=== PATIENT | male | born 1980 | race Caucasian/White ===

== ENCOUNTER → 2019-01-15 | Outpatient (CLI) | payer OTHER ==
[~2019-01-15] MED LIST: GABA600T7 PO; OMEG-57 PO; VALS40TA2 PO
--- NOTE | 2019-01-15 12:05 | PAIN ---
DATE OF SERVICE: 01/15/2019 INITIAL CONSULTATION FOR PAIN CLINIC CHIEF COMPLAINT: Low back and right greater than left lower extremity pain. HISTORY OF PRESENT ILLNESS: This is a 38-year-old male who presents with history of pain, low back, right greater than left lower extremity, since the injury on 11/05/2018. The patient had a L1 burst fracture and underwent surgery for this on 11/07/2018, with significant pain since that time. The patient has had some physical therapy, also some trigger point dry needling, which is not really helping the pain significantly. The patient reports he feels the physical therapy helped a little, but not very much. He is having a very significant difficulty sleeping and wakes him from sleep at least 3-4 times a night, does not affect his bowel or bladder control or his ability to walk, but he is not using any assistive devices to ambulate. The patient does have some postoperative x-rays done at [facility], results of which show lower thoracic lumbar fusion with L1 burst fracture with completion of posterior instrumentation at T11-L3, bridging the moderate compression fracture of L1, mild strain, lumbar lordosis, mild compression of the anterior superior margin of L2, L3 and L4, demonstrated left hip arthroplasty, partially visualized as well. The patient reports pain is becoming more constant, changes during the day with activity, better with sitting or lying down, but again waking him from sleep significantly. The patient rates his disability rate from 0-10, 10 being the worst, is a 4 with family home responsibilities and occupation, 7 with recreation, 2 with social activity, 1 with sexual behavior and self-care, 5-6 with life support activities, especially sleeping. The patient is taking gabapentin, which he does not feel is helping significantly, has not tried any other medications that have helped with the pain. The patient reports numbness in the left lateral thigh and anterior thigh as well as the posterior calf on the left side, worse with walking and standing. The patient reports no overt motor loss, but significant fatigability of the left leg greater than right. PAST MEDICAL HISTORY: Significant for hypertension, cigarette smoking, quit 10 years ago. Hepatitis C, arthritis, avascular necrosis of the left hip, migraine headaches. PREVIOUS SURGERY: Includes a left hip replacement in 07/2018, L1 burst fracture with fusion from T11 through L3 on 11/07/2018. Previous hiatal hernia repair, appendectomy and right knee scope. Also, ACL repair on the right knee. FAMILY HISTORY: Significant for cancers and diabetes. SOCIAL HISTORY: The patient drinks about 1-2 alcoholic drinks a week, has been smoking for about 10 years, about half pack a day. He is , does not use any illegal, illicit or recreational drugs. He has 2 children living at home, lives locally in [place], [place]. 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 REVIEW OF SYSTEMS: The patient's review of systems is positive for those items mentioned in history of present illness. All systems reviewed and otherwise negative. It is complete, full and well documented on the patient's chart. PHYSICAL EXAMINATION: VITAL SIGNS: The patient's blood pressure 137/78, pulse 65, respirations 18, temperature 98.2 degrees Fahrenheit, height is 69 inches, weight is 193 pounds. GENERAL: The patient is awake, alert, oriented, appropriate, very pleasant demeanor. HEENT: Shows normocephalic, atraumatic. Extraocular movements are intact and symmetrical. Oral cavity: Mucous membranes are moist and pink. Dentition is intact. NECK: Shows anterior throat supple without palpable lymphadenopathy noted. Swallow reflex symmetrical. CHEST: Shows normal with inspection. Breath sounds clear to auscultation bilaterally. HEART: Shows S1, S2 clear. No murmurs auscultated. ABDOMEN: Soft, nontender, nondistended. No palpable organomegaly is noted. No rebound or guarding demonstrated. BACK: Shows spine grossly in the midline. Normal-appearing thoracic kyphosis and flattening of lumbar lordotic curvature with well-healed surgical scarring in various multiple spots from the previous fusion in the low thoracic and lumbar distribution, which are well healed. Paraspinous muscle shows symmetrical, but with palpation, more tender on the left side than the right in the low thoracic and upper to mid lumbar distribution, with some mild hypertrophy on the left compared to the right. No specific radiation. No specific trigger points, but very firm musculature on the left compared to the right with palpation. The patient has good rotational motion of lumbar spine, both laterally greater than 10 degrees right and left as well as extension greater than 10 degrees, forward flexion 45 degrees without significant increase in pain. The patient's lower extremities show deep tendon reflexes 2+ in the patellar, 1+ tendo-calcaneus tendons. Motor exam is approximately 4 on a scale of 5 on the left, 5/5 on the right. Peripheral pulses are 1+ posterior tibia. No peripheral edema is noted. Lower extremities are warm and dry to touch, equal in color and appearance. Straight leg raise noted to be positive on the left at about 45 degrees, decreased with knee flexion, right side is negative. Gaenslen and Marcelino maneuvers are grossly negative with some limited external rotation on the left secondary to previous hip replacement. The patient is able to stand, stand on her toes without significant difficulty or loss of balance, walks with a normal-appearing gait for short distance in the office today, does not appear to favor the right or left lower extremity significantly with a short walking distance, not using any assistive devices to ambulate such as canes or walkers. SKIN: Shows warm and dry, good turgor. No edema. No sores, rashes or bruising. IMPRESSION: 1. This is a 38-year-old male with a recent history of injury with L1 burst fracture status post lumbar and thoracic fusion T11 to L3, with residual low back pain and radicular pain in the right lower extremity. 2. X-rays of lumbar spine as noted. 3. Hypertension. 4. Hypothyroidism. 5. Cigarette smoking. 6. Hepatitis C. PLAN: Options were discussed with the patient including conservative medical management, continued physical therapy, interventional technique. He would like to pursue interventional techniques. We discussed a lumbar epidural steroid injection using description as well as anatomical models to describe the procedure. The patient would like to pursue this, will wait for preauthorization with his insurance provider. In the meantime, the patient will maintain his activity as tolerated, keep stretching and strengthening exercises and therapy exercises since his surgery. The patient will followup approximately in 2 weeks. We will plan on lumbar epidural steroid injection at that time at the L4-L5 level. SINAI IRENE MD DR: SHIMON/allyson JOB#: [id number] / [id number]
== END | disposition home or self-care (01) ==
LOC: PNCL 07:50
PROVIDERS: ATTEND Anesthesiology
DX: M54.5 Low back pain (principal); M79.604 Pain in right leg; M79.605 Pain in left leg; I10 Essential (primary) hypertension; M19.90 Unspecified osteoarthritis, unspecified site; E03.9 Hypothyroidism, unspecified; B19.20 Unspecified viral hepatitis C without hepatic coma; F17.210 Nicotine dependence, cigarettes, uncomplicated; Z98.1 Arthrodesis status; Z87.81 Personal history of (healed) traumatic fracture; Z96.642 Presence of left artificial hip joint
CPT/HCPCS: G0463

== ENCOUNTER → 2019-03-04 | Outpatient (CLI) | payer OTHER ==
[~2019-03-04] MED LIST changes: +DIAZ5TAB4 PO; +HYDR-2761 PO; +IOHEXOL 180 MG/ML 10 ML VIAL. ONE; +methylPREDNISolone ACETATE 40 MG/ML VIAL. ONE; +methylPREDNISolone ACETATE 80 MG/ML VIAL. ONE
--- NOTE | 2019-03-04 09:58 | PAIN ---
DATE OF SERVICE: 03/04/2019 PROGRESS NOTE FOR PAIN CLINIC DIAGNOSES: Lumbar radiculopathy with lumbar degenerative disk disease and post-lumbar laminectomy syndrome. HISTORY OF PRESENT ILLNESS: The patient is a 38-year-old male who returns for followup status post lumbar epidural steroid injection x 1. The patient reports only minimal decrease in pain after the first injection, still pain across the low back into the left lower extremity occasionally, mostly just in the low back itself, worse with walking, standing, changing positions, bending or stooping. The patient reports it is sharp and constant pain at times, rates it as an 8 on a scale of 10 at its worst over the past week, 3-4 on average, 3 at its least and is a 4 today. The patient reports no new motor or sensory deficits, no new bowel or bladder incontinence, but awakening him from sleep about every 3-4 hours a night as well. PHYSICAL EXAMINATION: VITAL SIGNS: His blood pressure 125/85, pulse 52, respirations 16, temperature 98.0 degrees Fahrenheit, weight is 192 pounds. GENERAL: The patient is awake, alert, oriented, appropriate, very pleasant demeanor. HEENT: Head shows normocephalic, atraumatic. Extraocular movements are intact and symmetrical. Oral cavity, mucous membranes are moist and pink. Dentition is intact. NECK: Shows anterior throat supple without palpable lymphadenopathy noted. Swallow reflex symmetrical. CHEST: Shows normal on inspection. Breath sounds clear to auscultation bilaterally. HEART: Shows S1, S2 clear. No murmurs auscultated. ABDOMEN: Soft, nontender, nondistended. No palpable organomegaly is noted. No rebound or guarding demonstrated. BACK: Shows spine grossly in the midline. Normal-appearing thoracic kyphosis and some flattening of lumbar lordotic curvature. Well-healed surgical scarring which is fairly extensive in the lower thoracic and upper lumbar distribution. Lumbar paraspinous muscle shows symmetrical on inspection, on palpation shows some moderate tenderness diffusely bilaterally, but only diffusely without radiation. EXTREMITIES: The patient's lower extremities show deep tendon reflexes 2+ in the patellar, 1+ tendo-calcaneus tendons. Motor exam is approximately 4 on a scale of 5 on the left, 5/5 on the right with dorsiflexion and extension. Peripheral pulses are 1+ posterior tibia. No peripheral edema is noted bilaterally. Options were discussed with the patient. The patient's old chart was reviewed as his current medication regimen updated. Current review of systems updated today as well and we will proceed with the second in the series of lumbar epidural steroid injection today with fluoroscopic guidance. Risks were again discussed including, but not limited to bleeding, infection, possibility of epidural hematoma, subsequent neurological compromise, dural puncture, headaches, spinal cord and/or nerve damage, side effects of steroid medication and poor results regarding pain control. The patient understands and wished to proceed. The patient will return to clinic in approximately 2 weeks for followup. He was counseled on return appointment, activity level and side effects to be aware of. DIAGNOSES: Lumbar radiculopathy with lumbar degenerative disk disease and lumbar post-laminectomy syndrome. PROCEDURE: Lumbar epidural steroid injection, translaminar approach at L4-L5 level using C-arm fluoroscopic guidance under sterile prep and drape using local anesthetic. MEDICATION INJECTED: A total of 120 mg Depo-Medrol plus 10 mL of preservative-free normal saline and 2 mL of contrast. CONDITION AT DISCHARGE: Stable. The patient tolerated the procedure well, had no complications. SINAI IRENE MD DR: SHIMON/allyson JOB#: [id number] / [id number]
== END ==
LOC: PNCL 07:40
PROVIDERS: ATTEND Anesthesiology
DX: M51.16 Intervertebral disc disorders with radiculopathy, lumbar region (principal); M96.1 Postlaminectomy syndrome, not elsewhere classified
CPT/HCPCS: 62323; J1030; J1040; Q9965

== ENCOUNTER → 2019-03-20 | Outpatient (CLI) | payer OTHER ==
[~2019-03-20] MED LIST changes: -IOHEXOL 180 MG/ML 10 ML VIAL. ONE; -methylPREDNISolone ACETATE 40 MG/ML VIAL. ONE; -methylPREDNISolone ACETATE 80 MG/ML VIAL. ONE
--- NOTE | 2019-03-20 08:37 | PAIN ---
DATE OF SERVICE: 03/20/2019 PROGRESS NOTE FOR PAIN CLINIC DIAGNOSES: Lumbar radiculopathy, lumbar degenerative disk disease, and lumbar post-laminectomy syndrome. HISTORY OF PRESENT ILLNESS: The patient is a 38-year-old male who returns for followup status post lumbar epidural steroid injections x 2. The patient reports only about 20% improvement overall after the injection. The patient reports he feels fairly well until he is at work. He has been walking around 17,000 steps a day with his job. The patient reports it aggravates the pain significantly. When he is at rest, it is much better but at the time he gets down with his working day, he is unable to stand secondary to the pain. The patient reports his pain is 7 on a scale of 10 at its worst in the past week, 3-4 at its least and is a 3 on average, and is 3 today. The patient reports it is sharp and constant and aching in the low back itself, some radiation into the lower extremities as well with extended walking. The patient reports no new motor or sensory deficits. It is waiting him from sleep at night about 3-4 times. The patient has been taking Vicodin and Valium and is taking Vicodin each day when he gets home from work to tolerate the pain. The patient reports no new motor or sensory deficits, no other changes. PHYSICAL EXAMINATION: VITAL SIGNS: The patient's blood pressure 135/95, pulse 70, respirations 18, temperature 98.2 degrees Fahrenheit, height is 69 inches, weight is 189 pounds. GENERAL: The patient is awake, alert, oriented, appropriate, very pleasant demeanor. HEENT: Shows normocephalic, atraumatic. Extraocular movements are intact and symmetrical. Oral cavity: Mucous membranes moist and pink. Dentition is intact. NECK: Shows anterior throat supple without palpable lymphadenopathy noted. Swallow reflex symmetrical. CHEST: Shows normal on inspection. Breath sounds are clear to auscultation bilaterally. HEART: Shows S1, S2 clear. No murmurs auscultated. ABDOMEN: Soft, nontender, nondistended. No palpable organomegaly is noted. No rebound or guarding demonstrated. BACK: Shows spine grossly in the midline. Normal appearing thoracic kyphosis and lumbar lordotic curvature with well-healed surgical scar in the upper lumbar and lower thoracic distribution. EXTREMITIES: The patient's lower extremities show deep tendon reflexes 2+ in the patellar, 1+ in the tendo-calcaneus tendons. Motor exam is approximately 4 on a scale of 5 on the left, 5/5 on the right with dorsiflexion, extension, quadriceps and hamstring flexion. Peripheral pulses are 1+ in the posterior tibia. No peripheral edema is noted. Options were discussed with the patient. The patient's old chart was reviewed and his current medication regimen updated. Current review of systems updated today as well and we will preauthorize the patient for a third lumbar epidural steroid injection. The patient would like to proceed with a third injection in hopes of getting some improvement overall. The patient will continue to do strengthening and stretching exercises and walking as tolerated. The patient was cautioned as to heavy lifting, bending, flexing and repetitive motions as well as crawling or pushing or pulling objects which should be avoided as well as lifting more than about 10-20 pounds. The patient understands and agrees. The patient will return to clinic in approximately 1 week. We will plan on third lumbar epidural steroid injection at that time. SINAI IRENE MD DR: SHIMON/allyson JOB#: [id number] / [id number]
== END | disposition home or self-care (01) ==
LOC: PNCL 07:47
PROVIDERS: ATTEND Anesthesiology
DX: M51.16 Intervertebral disc disorders with radiculopathy, lumbar region (principal); M96.1 Postlaminectomy syndrome, not elsewhere classified
CPT/HCPCS: G0463

== ENCOUNTER → 2019-03-28 | Outpatient (CLI) | payer OTHER ==
[~2019-03-28] MED LIST changes: +IOHEXOL 180 MG/ML 10 ML VIAL. ONE; +methylPREDNISolone ACETATE 40 MG/ML VIAL. ONE; +methylPREDNISolone ACETATE 80 MG/ML VIAL. ONE
--- NOTE | 2019-03-29 05:18 | PAIN ---
DATE OF SERVICE: 03/28/2019 PROGRESS NOTE FOR PAIN CLINIC DIAGNOSES: Lumbar radiculopathy with lumbar degenerative disk disease and post lumbar laminectomy syndrome. HISTORY OF PRESENT ILLNESS: The patient is a 38-year-old male who returns for followup status post lumbar epidural steroid injections x 2. The patient reports only about 20% improvement overall, still with significant pain when he is on his feet, in the low back itself and into the left lower extremity more than the right with some numbness in the left thigh as well. The patient reports it is sharp, constant, aching, rated 8 on a scale of 10, at its worst over the past week, 4 on average, 4 at its least and is a 4 today. The patient reports it is waking him from sleep about every 6-7 hours, difficulty mainly with standing, walking, being on his feet especially with his work duties and active duties. The patient feels better initially after the injections, but then with continued working duties the pain returns fairly quickly. PHYSICAL EXAMINATION: VITAL SIGNS: The patient's blood pressure is 129/83, pulse 63, respirations 16, temperature is 98.2 degrees Fahrenheit and weight is 185 pounds. GENERAL: The patient is awake, alert, oriented, appropriate, very pleasant demeanor. HEENT: Shows normocephalic, atraumatic. Extraocular movements are intact and symmetrical. Oral cavity: Mucous membranes moist and pink. Dentition is intact. NECK: Shows anterior throat is supple without palpable lymphadenopathy noted. Swallow reflex symmetrical. CHEST: Shows normal on inspection. Breath sounds clear to auscultation bilaterally. HEART: Shows S1, S2 clear. No murmurs auscultated. ABDOMEN: Soft, nontender, nondistended. BACK: Shows spine grossly in the midline. Flattening of lumbar lordotic curvature is noted with well-healed surgical scarring and demonstrated the paraspinous muscles were diffusely tender throughout the upper, middle and lower distribution of paraspinous muscles bilaterally. EXTREMITIES: The patient's lower extremities show deep tendon reflexes 2+ in the patellar, 1+ tendo-calcaneus tendons. Motor exam is approximately 4 on a scale of 5 on the left and 5/5 on the right with dorsiflexion, extension, quadriceps and hamstring flexion. Peripheral pulses are 1+ posterior tibia. No peripheral edema is noted bilaterally. Options were discussed with the patient. The patient's old chart was reviewed as his current medication regimen updated. Current review of systems updated today as well. We will proceed with a third in the series of lumbar epidural steroid injection today with fluoroscopic guidance. Risks were again discussed including, but not limited to bleeding, infection, possibility of epidural hematoma, subsequent neurologic compromise, dural puncture, headaches, spinal cord and/or nerve damage, side effects of steroid medication and poor results regarding pain control. The patient understands and wished to proceed. The patient will return to the clinic in approximately 2 weeks for followup or as necessary. The patient was counseled as to the activity level as well as the side effects to be aware of. DIAGNOSES: Lumbar radiculopathy with lumbar degenerative disk disease and lumbar post laminectomy syndrome. PROCEDURE: Lumbar epidural steroid injection, translaminar approach at L4-L5 level using C-arm fluoroscopic guidance under sterile prep and drape using local anesthetic. MEDICATION INJECTED: A total of 120 mg Depo-Medrol plus 10 mL of preservative-free normal saline and 2 mL of contrast. CONDITION AT DISCHARGE: Stable. The patient tolerated the procedure well, had no complications. SINAI IRENE MD DR: SHIMON/allyson JOB#: [id number] / [id number]
== END ==
LOC: PNCL 08:27
PROVIDERS: ATTEND Anesthesiology
DX: M51.16 Intervertebral disc disorders with radiculopathy, lumbar region (principal)
CPT/HCPCS: 62323; J1030; J1040; Q9965